=== PATIENT | male | born 1995 | race Caucasian/White ===

== ENCOUNTER 2018-09-22 19:27 | Emergency (ER) | payer BC, SELFPAY ==
[2018-09-22 19:35] VITALS: BP 135/78; PULSE 116; RESP 18; TEMP 37.1; O2SAT 98
--- NOTE | 2018-09-22 20:14 | ED.GENADUL_ITS ---
Discharge Plan Disposition Patient Disposition: HOME Condition: Good Discharge Details Chief Complaint: Urinary Clinical Impression: STD exposure Primary Care Provider: Ingrid,Local ED Provider: Checo Faust Home Meds and New Rx's Prescriptions: No Action No Known Home Meds RF: 0 Discharge Instructions Instructions: Sexually Transmitted Diseases (ED) Additional Instructions: Abstain from sexual relations for at least a week to let antibiotics work. Follow up with PCP in one to two weeks if continued symptoms. Return to ED if you develop fever, vomiting, abdominal pain, flank pain, other concerns. Referrals: Primary Care Provider [Outside] Medical Decision Making GC and Chlamydia urine PCR sent. However, given the patient's symptoms and the fact that his partner has tested positive for gonorrhea we will go ahead and treat. He will receive 250 ceftriaxone IM and 1 g of azithromycin p.o. Abstain from sexual relations for at least 1 week. Follow-up with primary care in 1 to 2 weeks if remains symptomatic. Return to ED if any worsening symptoms. HPI General Mode of arrival: ambulatory . Date/Time Provider Initiated Documentation: 09/22/18 19:28 . Limitations to Documentation: no limitations . Information obtained by: patient . HPI Narrative: Patient presents to ED with complaint of dysuria and penile discharge. Reports that his partner was diagnosed with gonorrhea earlier this week. He is having symptoms at this point as well. He has no sores or lesions. He has no pain or swelling in his testicles or perineum. He has no abdominal pain. He had no fevers or chills. He has had a mild sore throat but no other URI symptoms. He has no rash, myalgias, arthralgias. He is otherwise healthy. He identifies as homosexual. His partner has been treated. Related Data Home Medications Medication Instructions Recorded Confirmed Unknown [No Known Home Meds] 09/22/18 09/22/18 Allergies Allergy/AdvReac Type Severity Reaction Status Date / Time No Known Allergies Allergy Verified 09/22/18 20:15 General Stated Complaint: Urinary TESS: 3 Review of Systems Review of Systems As documented in HPI otherwise negative as below. Const: no fever, chills, weakness Resp: no cough, SOB, pleuritic pain CV: no CP, diaphoresis, edema, syncope GI: no abdominal pain, nausea, vomiting, diarrhea Neuro: no headache, numbness, focal weakness, confusion PFSH Social History Smoking/Tobacco Use Status: Never Alcohol Intake: current Alcohol Intake frequency: a few times a week Drug use: Never Substance use type: does not use Do you feel safe at home: Yes Do you feel safe in your relationship?: Yes Exam Narrative Exam Narrative: Vitals: Afebrile. Initially tachycardic but rate down once relaxed in room. Const: WDWN male in NAD. HEENT: NC/AT. Normal OP. Eyes: Normal conjunctiva and sclera. Neck: Supple. Trachea midline. Lungs: Normal respiratory effort. Lungs are clear. Cor: RRR without murmur/gallop. Good radial pulses. GI: Soft. NT/ND. No guarding or rebound. Neuro: A+O x 3. CN grossly in tact. Good strength and no focal deficit. Ext: No C/C/E. No deformity or tenderness or joint swelling. Skin: Warm and dry without rash. : deferred Course Vital Signs Temperature 98.8 F 09/22/18 19:35 Pulse 116 H 09/22/18 19:35 Respiratory Rate 18 09/22/18 19:35 Blood Pressure 135/78 09/22/18 19:35 Pulse Oximetry 98 09/22/18 19:35 Temperature 98.8 F 09/22/18 19:35 Temperature Source Tympanic 09/22/18 19:35 Pulse 116 H 09/22/18 19:35 Respiratory Rate 18 09/22/18 19:35 Respiratory Effort Non-Labored 09/22/18 19:41 Blood Pressure 135/78 09/22/18 19:35 Blood Pressure Position Sitting 09/22/18 19:35 Pulse Oximetry 98 09/22/18 19:35 Oxygen Delivery Method Room Air 09/22/18 19:35 Oxygen Flow Rate 0 09/22/18 19:35 Pain Level 7 09/22/18 19:41 Comment 09/22/18 19:35
[2018-09-22] MEDS: cefTRIAXone 250 MG VIAL IM (20:25)
[2018-09-22] MEDS: Azithromycin 250 MG TAB 1000 MG PO (20:25)
[2018-09-22] MEDS: Lidocaine 1% Multi-Dose 50 ML VIAL (20:26)
[2018-09-22 20:31] VITALS: BP 135/78; PULSE 89; RESP 18; O2SAT 98
[2018-09-26 14:28] LABS: Chlamydia Result Negative; Specimen Description URINE
[2018-09-26 14:44] LABS: GC Result Positive
--- NOTE | 2018-09-26 15:01 | W.ED.FU ---
I called the patient to inform him of positive gc. He understands rseults, received appropriate tx in the ED no need to return to the ED. Advised follow d/c instructions given to him
== END 2018-09-22 20:31 | disposition home or self-care (01) ==
LOC: ER 20:21
PROVIDERS: Emergency Medicine; Emergency Provider Emergency Medicine
DX: A54.9 Gonococcal infection, unspecified (principal)
CPT/HCPCS: 87491; 87591; 96372; 99284; J0696